=== PATIENT | female | born 1945 | race Caucasian/White ===

== ENCOUNTER → 2020-07-04 | Outpatient (CLI) | payer MEDICARE, BC ==
[~2020-07-04] MED LIST: ACET250C PO; ALEN70SO PO; ALLE180T33 PO; ALPHTAB PO; ASPI81TA86 PO; CALC600T60 PO; GLUC500C5 PO; IRON27TA2 PO; NAPR-885 PO; NORV5TAB PO; OMEG100011 PO; TRAM50TA2 PO; VAGI10TA IC; VITA-243 PO; VITA2000 PO
[2020-08-26 09:59] LABS: APPEARANCE, URINE MANUAL CLEAR (CLEAR); BILIRUBIN, URINE MANUAL NEGATIVE (NEGATIVE); BLOOD URINE MANUAL NEGATIVE (NEGATIVE); COLOR, URINE MANUAL YELLOW (YELLOW); GLUCOSE, URINE (UA) MANUAL NEGATIVE (NEGATIVE); KETONE, URINE MANUAL NEGATIVE (NEGATIVE); LEUKOCYTE ESTERASE, URINE MAN POSITIVE (NEGATIVE); NITRITE, URINE MANUAL NEGATIVE (NEGATIVE); PROTEIN, URINE MANUAL NEGATIVE (NEGATIVE); SPECIFIC GRAVITY,URINE MANUAL 1.015 (1.002-1.035); UROBILINOGEN, URINE MANUAL NORMAL (NORMAL)
[2020-08-26 10:00] LABS: BACTERIA, URINE SMALL AMOUNT; HYALINE CAST, URINE NONE SEEN /lpf (0-1); RBC, URINE NONE SEEN /hpf (0-3); SQUAMOUS EPITHELIAL CELL URINE SMALL AMOUNT /hpf (SMALL AMT)
== END ==
LOC: M LAB 15:41
PROVIDERS: ATTEND Internal Medicine
DX: R30.0 Dysuria (principal)

== ENCOUNTER → 2020-07-15 | Outpatient (CLI) | payer MEDICARE, BC ==
--- NOTE | 2020-07-20 08:23 | REP ---
LEFT WRIST SERIES: 4-VIEWS HISTORY: Fell on outstretched hand. Injury left wrist. FINDINGS: There is overlying splint/dressing artifact. The patient is status post ventral fusion plating for previous distal radial fracture. There is diffuse osteopenia. 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 No acute fracture is appreciated on todays images. IMPRESSION: No acute fracture seen. Status post ventral fusion plating along the distal radius for a previous fracture. LIZETH
== END ==
LOC: M RAD 15:47
PROVIDERS: ATTEND Physician Assistant Medical
DX: S59.912A Unspecified injury of left forearm, initial encounter (principal); W19.XXXA Unspecified fall, initial encounter; Y92.89 Other specified places as the place of occurrence of the external cause; Y93.9 Activity, unspecified; Y99.9 Unspecified external cause status

== ENCOUNTER → 2021-07-31 | Outpatient (REF) | payer MEDICARE, BC | LOC: M LABDRAWC 11:39 | DX: M81.0 Age-related osteoporosis without current pathological fracture (principal) ==

== ENCOUNTER → 2021-07-31 | Outpatient (REF) | payer MEDICARE, BC ==
[2021-07-31 12:40] LABS: ALBUMIN 3.7 GM/DL (3.2-5.2); ALT/SGPT 29 U/L (12-78); BILIRUBIN,TOTAL 0.6 MG/DL (0.2-1.0); BLOOD UREA NITROGEN 12 MG/DL (7-18); CALCIUM LEVEL 9.3 MG/DL (8.8-10.2); CARBON DIOXIDE LEVEL 31 MEQ/L (21-32); CHLORIDE LEVEL 110 MEQ/L (98-107); GLOMERULAR FILTRATION RATE > 60.0 (>39); GLUCOSE, FASTING 97 MG/DL (70-100); POTASSIUM SERUM 4.3 MEQ/L (3.5-5.1); SODIUM LEVEL 143 MEQ/L (136-145); TOTAL PROTEIN 7.3 GM/DL (6.4-8.2)
[2021-07-31 13:01] LABS: HEPATITIS B SURFACE ANTIGEN NEGATIVE (NEGATIVE)
[2021-07-31 13:28] LABS: HEPATITIS C VIRUS ABY INDEX < 0.0 INDEX (<0.8)
[2021-07-31 13:29] LABS: HEPATITIS B CORE ANTIBODY IGM NEGATIVE (NEGATIVE)
== END ==
LOC: M SFHCCLAY 08:26
PROVIDERS: ATTEND Nurse Practitioner Family
DX: L29.9 Pruritus, unspecified (principal)

== ENCOUNTER → 2022-08-07 | Outpatient (REF) | payer MEDICARE, BC ==
[~2022-08-07] MED LIST changes: -ALEN70SO PO; +ALEN70SO2 PO
[2022-08-07 18:14] LABS: ALBUMIN 3.9 GM/DL (3.2-5.2); ALT/SGPT 33 U/L (12-78); BILIRUBIN,TOTAL 0.5 MG/DL (0.2-1.0); BLOOD UREA NITROGEN 23 MG/DL (7-18); CALCIUM LEVEL 9.4 MG/DL (8.8-10.2); CARBON DIOXIDE LEVEL 27 MEQ/L (21-32); CHLORIDE LEVEL 106 MEQ/L (98-107); CREATININE FOR GFR 0.77 MG/DL (0.55-1.30); GLOMERULAR FILTRATION RATE > 60.0 (>39); GLUCOSE, FASTING 76 MG/DL (70-100); POTASSIUM SERUM 4.3 MEQ/L (3.5-5.1); SODIUM LEVEL 139 MEQ/L (136-145); TOTAL PROTEIN 7.3 GM/DL (6.4-8.2)
[2022-08-07 18:44] LABS: TOTAL 25(OH) VITAMIN D 37.2 NG/ML (30.0-100.0)
== END ==
LOC: M LABDRAWC 16:37
DX: M81.0 Age-related osteoporosis without current pathological fracture (principal); E55.9 Vitamin D deficiency, unspecified

== ENCOUNTER → 2024-05-17 | Outpatient (CLI) | payer MEDICARE, BC | LOC: M WHC 10:20 | PROVIDERS: ATTEND Obstetrics & Gynecology | DX: R92.312 Mammographic fatty tissue density, left breast (principal) ==

== ENCOUNTER → 2024-05-30 | Outpatient (REF) | payer MEDICARE, BC | LOC: M SFHCPLAZ 17:11 | PROVIDERS: ATTEND Nurse Practitioner Family | DX: J40 Bronchitis, not specified as acute or chronic (principal) ==

== ENCOUNTER → 2024-06-03 | Outpatient (REF) | payer MEDICARE, BC | LOC: M SFHCPLAZ 12:57 | PROVIDERS: ATTEND Family Medicine | DX: R05.1 Acute cough (principal) ==

== ENCOUNTER → 2025-08-11 | Outpatient (CLI) | payer MEDICARE, BC | LOC: M PLALAB 09:33 | PROVIDERS: ATTEND Nurse Practitioner Family | DX: R07.81 Pleurodynia (principal); M16.11 Unilateral primary osteoarthritis, right hip ==